=== PATIENT | female | born 1995 | race Caucasian/White ===

== ENCOUNTER 2019-11-30 14:06 | Inpatient (IN) | payer BC, MEDICAID ==
[~2019-11-30] VITALS: Ht 167.6 cm; Wt 71.7 kg
[2019-11-30] MEDS ORDERED: PHARMACY MAY ADJ FOR RENAL FX MC SCH (14:30)
[2019-11-30] MEDS ORDERED: LACTULOSE 20 GM/30 ML UDC NG PRN (14:30)
[2019-11-30] MEDS ORDERED: FENTANYL PF 100 MCG/2ML IVPush PRN (14:30)
[2019-11-30] MEDS ORDERED: LIDOCAINE-MPF 1%, 2ML ENDO PRN (14:30)
[2019-11-30] MEDS ORDERED: BISACODYL 10 MG SUPP PR PRN (14:30)
[2019-11-30] MEDS ORDERED: SENNA 176 MG/5 ML ORAL SOL NG PRN (14:30)
[2019-11-30] MEDS ORDERED: SENNA/DOCUSATE TABLET NG PRN (14:30)
--- NOTE | 2019-11-30 14:47 | NUR ---
LATE ENTRY FOR ARRIVAL AT 1400 BIB [facility] FROM [facility]. PER REPORT FROM EMS PT PRESENTED TO [facility] WITH C/O ABD UDAY THIS MORNING AND STATED THAT SHE TOOK 96GM OF IBUPROFEN AT 1000 TODAY. SHE QUICKLY BECAME MORESOMNULENT AND WAS INTUBATED FOR AIRWAY MANAGEMENT. REC'D 100MG ROCURONIUM, 100MCG FENTANYL, 10MG ETOMIDATE PRIOR TO HER INTUBATION. AND KETAMINE GTT WAS INFUSED DURRING TRANSPORT AT 4MG/KG/HR. PT ARRIVES DEDATED, 7.5 ORAL ETT 24CM AT LIP, ORAL NGT, JACOBO CATH ALL IN PLACE. DR CAZARES AT BEDSIDE, PT ASSESSMENT REVIEWED AND ORDERS REC'D. DR. OLIVERA FROM PULMONOLOGY AT BEDSIDE, POC DISCUSSED AND QUESTIONS ANSERED. PT ON MONITORS, VSS. PT JACOBO TEMP 95.0, ANN-MARIE BLANKET PLACED. PT RESTLESS AND PULLING AGAINST RESTRAINTS WITH PURPOSFUL MOVEMENT BUT DOES NOT CALM OR FOLLOW COMMANDS. PROPOFOL GTT STARTED. PCXR OBTAINED, ORAL NGT PLACEMENT CK'D AND PLACED TO LIS.
[2019-11-30 14:48] LABS: BASOPHILS # (AUTO) 0.04 x10^3/uL (0-0.1); BASOPHILS % (AUTO) 1 % (0-1); EOSINOPHILS # (AUTO) 0.25 x10^3/uL (0-0.4); EOSINOPHILS % (AUTO) 3 % (1-7); LYMPHOCYTES # (AUTO) 1.58 x10^3/uL (1-3.4); LYMPHOCYTES % (AUTO) 21 % (22-44); MD NO; MEAN CORPUSCULAR HEMOGLOBIN 30.4 pg (27.0-34.8); MEAN CORPUSCULAR HGB CONC 33.2 g/dL (32.4-35.8); MEAN CORPUSCULAR VOLUME 91.6 fL (80-100); MEAN PLATELET VOLUME 7.4 fL (7.4-10.4); MONOCYTES # (AUTO) 0.49 x10^3/uL (0.2-0.8); MONOCYTES % (AUTO) 7 % (2-9); NEUTROPHILS # (AUTO) 5.04 x10^3/uL (1.8-6.8); NEUTROPHILS % (AUTO) 68 % (42-75); PLATELET COUNT 301 x10^3/uL (130-400); RED BLOOD COUNT 4.18 x10^6/uL (3.82-5.3); RED CELL DISTRIBUTION WIDTH 12.9 % (9.6-15.2)
--- NOTE | 2019-11-30 14:50 | NUR ---
PT NOW APPEARS SEDATED AND IN NO ACUTE DISTRESS. PROPOFOL GTT AT 1OMCG/KG/MIN.
[2019-11-30 14:53] LABS: ANION GAP 9 mmol/L (5-15); CALCIUM 6.9 mg/dL (8.5-10.1); CHLORIDE 114 mmol/L (98-107)
[2019-11-30 14:58] LABS: ALANINE AMINOTRANSFERASE 152 U/L (12-78); ALKALINE PHOSPHATASE 54 U/L (45-117); BILIRUBIN,TOTAL 0.3 mg/dL (0.2-1.0); CREATININE 0.58 mg/dL (0.55-1.02); TOTAL PROTEIN 5.9 g/dL (6.4-8.2); TRIGLYCERIDES 22 mg/dL (50-200)
[2019-11-30 15:00] LABS: SALICYLATE LEVEL < 1.7 mg/dL (2.8-20.0)
[2019-11-30] MEDS ORDERED: SODIUM CHLORIDE FLUSH 10ML SYR IVF PRN (15:00)
[2019-11-30] MEDS ORDERED: HEPARIN 5,000 UNITS/ML, 1ML ONE (15:02)
[2019-11-30] MEDS ORDERED: PANTOPRAZOLE 40 MG IV ONE (15:02)
[2019-11-30] MEDS: HEPARIN 5,000 UNITS/ML, 1ML SQ SCH ×2 (15:04→23:01)
--- NOTE | 2019-11-30 15:27 | NUR ---
DR BRIZUELA AT BEDSIDE. DISCUSSED SEDATION. PT GOES FROM BEING SEDATED TO AWAKE AND PULLING AGAINST RESTRAINTS BUT NOT FOLLOWING COMMANDS. NEW SEDATION ORDERS REC'D.
[2019-11-30] MEDS ORDERED: morphine SULFATE 10 MG/ML, 1ML IVPush PRN (15:30)
[2019-11-30] MEDS ORDERED: ONDANSETRON 2MG/ML, 2ML IVPush PRN (15:30)
[2019-11-30] MEDS ORDERED: LABETALOL 5MG/ML, 20ML IVPush PRN (15:30)
[2019-11-30] MEDS ORDERED: MIDAZOLAM 1 MG/ML, 5ML IVPush ONE (15:30)
[2019-11-30] MEDS ORDERED: OXYcodone IR 5MG TABLET PO PRN (15:30)
[2019-11-30] MEDS ORDERED: MIDAZOLAM 1 MG/ML, 2ML ONE (15:40)
[2019-11-30] MEDS: SODIUM BICARBONATE 8.4% 150 MEQ in DEXTROSE 5% 1,000 ML IV SCH (16:19)
[2019-11-30 16:49] LABS: AMPHETAMINE SCREEN, URINE Positive (Negative); BARBITURATE SCREEN, URINE Negative (Negative); BENZODIAZEPINE SCREEN, URINE Negative (Negative); CANNABINOID SCREEN, URINE Negative (Negative); COCAINE SCREEN, URINE Negative (Negative); METHADONE SCREEN, URINE Negative (Negative); OPIATE SCREEN, URINE Negative (Negative)
[2019-11-30] MEDS ORDERED: MIDAZOLAM 1 MG/ML, 2ML IVPush PRN (18:00)
[2019-11-30 19:40] LABS: INTERNATIONAL NORMALIZED RATIO 1.08 (0.93-1.1); PROTHROMBIN TIME 11.5 Seconds (9.6-11.5)
[2019-11-30] MEDS ORDERED: DEXTROSE 5% IV ONE ×3 (22:30)
[2019-11-30] MEDS ORDERED: ACETYLCYSTEINE IV ONE ×3 (22:30)
[2019-11-30] MEDS: SODIUM CHLORIDE FLUSH 10ML SYR IVF SCH (23:02)
[2019-11-30] MEDS: PROPOFOL 100 ML IV PRN (23:40)
[2019-12-01] MEDS ORDERED: DEXTROSE 5% IV ONE
[2019-12-01] MEDS ORDERED: ACETYLCYSTEINE IV ONE
[2019-12-01] MEDS: SODIUM BICARBONATE 8.4% 150 MEQ in DEXTROSE 5% 1,000 ML IV SCH (00:26)
[2019-12-01] MEDS ORDERED: ACETYLCYSTEINE 7,200 MG in DEXTROSE 5% 1,000 ML IV ONE (04:00)
[2019-12-01 04:27] LABS: BASOPHILS # (AUTO) 0.04 x10^3/uL (0-0.1); BASOPHILS % (AUTO) 1 % (0-1); EOSINOPHILS # (AUTO) 0.38 x10^3/uL (0-0.4); EOSINOPHILS % (AUTO) 5 % (1-7); LYMPHOCYTES # (AUTO) 1.72 x10^3/uL (1-3.4); LYMPHOCYTES % (AUTO) 22 % (22-44); MD NO; MEAN CORPUSCULAR HGB CONC 32.8 g/dL (32.4-35.8); MEAN CORPUSCULAR VOLUME 91.5 fL (80-100); MEAN PLATELET VOLUME 7.8 fL (7.4-10.4); MONOCYTES % (AUTO) 8 % (2-9); NEUTROPHILS # (AUTO) 5.19 x10^3/uL (1.8-6.8); NEUTROPHILS % (AUTO) 65 % (42-75); PLATELET COUNT 275 x10^3/uL (130-400); RED BLOOD COUNT 3.87 x10^6/uL (3.82-5.3); RED CELL DISTRIBUTION WIDTH 13.3 % (9.6-15.2)
[2019-12-01] MEDS: PROPOFOL 100 ML IV PRN (04:34)
[2019-12-01 04:37] LABS: ANION GAP 8 mmol/L (5-15); CALCIUM 6.9 mg/dL (8.5-10.1); CHLORIDE 109 mmol/L (98-107)
[2019-12-01 04:39] LABS: CREATININE 0.49 mg/dL (0.55-1.02)
[2019-12-01] MEDS: HEPARIN 5,000 UNITS/ML, 1ML SQ SCH ×3 (06:00→21:07)
[2019-12-01] MEDS ORDERED: POTASSIUM CHLORIDE 10% 40 MEQ/30 ML UDC PO ONE (07:00)
[2019-12-01] MEDS ORDERED: MAGNESIUM SULFATE PMX 2GM/50ML 50 ML IV ONE (07:00)
[2019-12-01] MEDS: PANTOPRAZOLE 40 MG IV IV SCH (07:53)
[2019-12-01] MEDS: SODIUM CHLORIDE FLUSH 10ML SYR IVF SCH ×2 (07:54→21:07)
--- NOTE | 2019-12-01 14:16 | NUR ---
12/01/2019--at completion of treatment patient back to bed requesting phone and mom "I need to see my mom. I need to call my mom. I tried to kill myself and my mom has tried before too. I grew up like this. " PT went to lobby to search for Sapna however not present. Discussion with Bety, case management re: above conversation. JUD Albert will attempt to contact mom and keep patient updated. Addendum: 12/01/19 at 1419 by Nissa Garcia PT Amended: Links added.
[2019-12-01 19:37] VITALS: BP 109/65
[2019-12-01 20:53] LABS: INTERNATIONAL NORMALIZED RATIO 1.13 (0.93-1.1)
[2019-12-01 20:58] LABS: ALANINE AMINOTRANSFERASE 116 U/L (12-78); ALBUMIN 2.7 g/dL (3.4-5.0); ANION GAP 8 mmol/L (5-15); CALCIUM 7.7 mg/dL (8.5-10.1); CHLORIDE 109 mmol/L (98-107); CREATININE 0.55 mg/dL (0.55-1.02)
[2019-12-01 21:01] LABS: ALKALINE PHOSPHATASE 50 U/L (45-117); BILIRUBIN,TOTAL 0.5 mg/dL (0.2-1.0); TOTAL PROTEIN 5.5 g/dL (6.4-8.2)
[2019-12-02 01:38] VITALS: BP 112/78
[2019-12-02] MEDS: HEPARIN 5,000 UNITS/ML, 1ML SQ SCH ×2 (05:17→13:00)
[2019-12-02 07:06] VITALS: BP 110/75
[2019-12-02] MEDS: PANTOPRAZOLE 40 MG IV IV SCH (08:58)
[2019-12-02] MEDS: SODIUM CHLORIDE FLUSH 10ML SYR IVF SCH (08:58)
[2019-12-02] MEDS ORDERED: CALC1TAB68 PO (12:25)
[2019-12-02 13:58] VITALS: BP 117/83
== END 2019-12-02 15:08 | disposition home or self-care (01) | DRG 917 ==
LOC: ED 15:07 → CCU 15:25 → 4WST 12-01 14:50 → DCLOUNGE 12-02 15:03
PROVIDERS: ADMIT Internal Medicine; ATTEND Family Medicine
PROC: 5A1935Z Respiratory Ventilation, Less than 24 Consecutive Hours (ICD-10-PCS; principal; 2019-11-30)
PROC: 0BH17EZ Insertion of Endotracheal Airway into Trachea, Via Natural or Artificial Opening (ICD-10-PCS; 2019-11-30)
DX: T39.312A Poisoning by propionic acid derivatives, intentional self-harm, initial encounter (principal); J96.01 Acute respiratory failure with hypoxia; J18.9 Pneumonia, unspecified organism; E87.2 Acidosis; J98.11 Atelectasis; S36.119A Unspecified injury of liver, initial encounter; Z99.11 Dependence on respirator [ventilator] status; E83.51 Hypocalcemia; F17.200 Nicotine dependence, unspecified, uncomplicated; F32.9 Major depressive disorder, single episode, unspecified; Y92.89 Other specified places as the place of occurrence of the external cause; Z91.5 Personal history of self-harm; X58.XXXA Exposure to other specified factors, initial encounter; Y93.89 Activity, other specified; Y99.8 Other external cause status
CPT/HCPCS: 36415; 36600; 71045; 80048; 80053; 80307; 82140; 82306; 82803; 83735; 83970; 84478; 84703; 85025; 85610; 87070; 87081; 87205; 93005; 94002; 94003; 99285; G0378; J0132; J1644; J2250; J2704; J7060; J7070; C9113; J3475